=== PATIENT | female | born 1975 | race Caucasian/White ===

== ENCOUNTER 2021-08-25 10:45 | Observation (INO) | payer BC, SELFPAY ==
[~2021-08-25] VITALS: Ht 167.6 cm; Wt 92.1 kg
[2021-08-25 12:02] LABS: BASOPHILS % (AUTO) 0.3 % (0-1); EOSINOPHILS # (AUTO) 0.1 X10'3 (0-0.9); EOSINOPHILS % (AUTO) 0.9 % (0-6); HEMATOCRIT 41.6 % (35.0-45.0); HEMOGLOBIN 14.3 g/dl (12.0-16.0); LYMPHOCYTES # (AUTO) 0.6 X10'3 (1.1-4.8); LYMPHOCYTES % (AUTO) 9.9 % (21-51); MEAN CORPUSCULAR HEMOGLOBIN 30.4 PG (27.0-31.0); MEAN CORPUSCULAR HGB CONC 34.4 g/dL (33.0-36.5); MEAN CORPUSCULAR VOLUME 88.2 FL (78-98); MEAN PLATELET VOLUME 8.2 FL (7.4-10.4); MONOCYTES # (AUTO) 0.4 X10'3 (0-0.9); MONOCYTES % (AUTO) 6.3 % (2-12); NEUTROPHILS % (AUTO) 82.6 % (42-75); PLATELET COUNT 156 X10'3 (140-440); RED BLOOD COUNT 4.71 X10'6 (4.20-5.60); RED CELL DISTRIBUTION WIDTH 13.7 % (11.5-14.5); WHITE BLOOD COUNT 6.1 X10'3 (4.5-11.0)
[2021-08-25 12:19] LABS: ALANINE AMINOTRANSFERASE 30 U/L (12-78); ALBUMIN 3.8 G/DL (3.4-5.0); ALBUMIN/GLOBULIN RATIO 1.2 (1.1-1.5); ALKALINE PHOSPHATASE 46 IU/L (46-116); ANION GAP 8 (8-16); ASPARTATE AMINO TRANSFERASE 18 U/L (10-37); BILIRUBIN,TOTAL 0.8 MG/DL (0.1-1.0); BLOOD UREA NITROGEN 14 MG/DL (7-18); BUN/CREATININE RATIO 25.5 (6.6-38.0); CALCIUM 8.3 MG/DL (8.5-10.1); CHLORIDE 106 MMOL/L (99-107); CREATININE 0.55 MG/DL (0.40-0.90); GLUCOSE 87 MG/DL (70-104); POTASSIUM 4.1 MMOL/L (3.5-5.1); SODIUM 139 MMOL/L (135-145); TOTAL CARBON DIOXIDE 24.7 MMOL/L (24-32); eGFR > 90 ML/MIN
[2021-08-25 12:25] LABS: APTT 30 SECONDS (22-32)
--- NOTE | 2021-08-25 14:06 | NUR ---
Tele Neuro Visit in progress.
[2021-08-25] MEDS ORDERED: iohexol 350MG/ML 100ml bottle IV ONE (15:22)
[2021-08-25] MEDS ORDERED: acetaminophen 325mg tablet PO PRN (15:40)
[2021-08-25] MEDS ORDERED: PERFLUTREN PROTEIN-A MICROSPHR (Optison) 0.22 MG/ML 3ML VIAL IV ONE (15:40)
[2021-08-25] MEDS ORDERED: magnesium Cl slow-release 64mg tablet PO PRN ×2 (15:40)
[2021-08-25] MEDS ORDERED: ondansetron/PF 4mg/2ml inj IV PRN (15:40)
[2021-08-25] MEDS ORDERED: magnesium 2GM in 50ml NS 50 ML IV PRN (15:40)
[2021-08-25] MEDS ORDERED: potassium CL 10mEq/100ml bag 100 ML IV PRN (15:40)
[2021-08-25] MEDS ORDERED: potassium Cl 20 mEq SR tablet PO PRN ×2 (15:40)
[2021-08-25] MEDS ORDERED: magnesium 4gm in 100ml NS 100 ML IV PRN (15:40)
[2021-08-25] MEDS ORDERED: ZOLP5TAB8 PO (15:54)
[2021-08-25] MEDS ORDERED: BACL10TA2 PO (15:54)
[2021-08-25 16:28] LABS: MAGNESIUM 1.9 MG/DL (1.5-2.4)
[2021-08-25] MEDS: K and/or MAG REPLACEMENT MC SCH (20:00)
[2021-08-25 22:00] VITALS: BP 129/86
[2021-08-25] MEDS: normal saline 1000ml 1,000 ML IV SCH (22:00)
[2021-08-26] VITALS (7 sets, daily range): BP systolic 98–138; BP diastolic 46–76
--- NOTE | 2021-08-26 03:49 | NUR ---
Pt is a 46 yo female admitted 08/25/2021, day 0 of admission, full code, allergies to Acetaminophen and hydrocodone. no isolation, no restraints. Pt presented c/o and tingling in right cheek, tongue, hand and arm. Symptoms subsided prior to coming to ER. Pt admitted to PCU ROOM 3026 B. Currently, pt is AAO times 4, moves all extremities, follows all commands, steady gait. good strength, pupils 3 equal and reactive, no visual disturbances noted. CT head NEG. Telemetry box #30, SR, HR 76, good pulses, BP 109/88, +1 BLLE edema. ECHO % EF, CXR: No acute cardio pulmonary disease. IVF NSS 125/hr via #20 RAC. CTA no large vessel stenosis or occlusion. RR 16, PO 100% RA, clear, equal, symmetrical, non labored. Hypoactive bowel sounds, soft, non tender. Voids CYU via BRP. Pt remains safe, continue with neuro checks Q4 hours.
[2021-08-26 07:04] LABS: BASOPHILS % (AUTO) 0.4 % (0-1); EOSINOPHILS # (AUTO) 0.2 X10'3 (0-0.9); EOSINOPHILS % (AUTO) 4.4 % (0-6); HEMATOCRIT 39.3 % (35.0-45.0); HEMOGLOBIN 13.4 g/dl (12.0-16.0); LYMPHOCYTES # (AUTO) 0.9 X10'3 (1.1-4.8); LYMPHOCYTES % (AUTO) 23.5 % (21-51); MEAN CORPUSCULAR HEMOGLOBIN 30.2 PG (27.0-31.0); MEAN CORPUSCULAR VOLUME 88.9 FL (78-98); MEAN PLATELET VOLUME 8.1 FL (7.4-10.4); MONOCYTES # (AUTO) 0.4 X10'3 (0-0.9); MONOCYTES % (AUTO) 11.5 % (2-12); NEUTROPHILS # (AUTO) 2.3 X10'3 (1.8-7.7); NEUTROPHILS % (AUTO) 60.2 % (42-75); PLATELET COUNT 127 X10'3 (140-440); RED BLOOD COUNT 4.42 X10'6 (4.20-5.60); RED CELL DISTRIBUTION WIDTH 13.6 % (11.5-14.5); WHITE BLOOD COUNT 3.9 X10'3 (4.5-11.0)
--- NOTE | 2021-08-26 07:11 | NUR ---
Patient in room PCU 3026. I have received report from LEOBARDO LORA and had the opportunity to ask questions and assume patient care.
[2021-08-26 07:20] LABS: ALBUMIN 3.2 G/DL (3.4-5.0); ANION GAP 7 (8-16); BLOOD UREA NITROGEN 10 MG/DL (7-18); BUN/CREATININE RATIO 16.9 (6.6-38.0); CALCIUM 7.8 MG/DL (8.5-10.1); CHLORIDE 109 MMOL/L (99-107); CREATININE 0.59 MG/DL (0.40-0.90); GLUCOSE 63 MG/DL (70-104); MAGNESIUM 1.8 MG/DL (1.5-2.4); POTASSIUM 3.8 MMOL/L (3.5-5.1); SODIUM 139 MMOL/L (135-145); TOTAL CARBON DIOXIDE 23.1 MMOL/L (24-32); eGFR > 90 ML/MIN
[2021-08-26] MEDS: K and/or MAG REPLACEMENT MC SCH ×2 (08:00→19:02)
--- NOTE | 2021-08-26 09:17 | NUR ---
PAGER ID: [phone] MESSAGE: KIMMIE GILMORE ROOM 3026 Pt would like some medication for back spasm/pain for her scheduled MRI please. Thank you. Odilia [phone]
[2021-08-26] MEDS ORDERED: baclofen 10mg tablet PO ONE (09:45)
[2021-08-26] MEDS ORDERED: aspirin 81mg, enteric-coated 1 TAB TABLET.DR PO ONE (15:20)
[2021-08-26 15:24] LABS: CHOL/HDL RATIO 2.9 (0.00-4.99); CHOLESTEROL 170 MG/DL (0-200); HDL CHOLESTEROL 59 MG/DL (35-60); LDL CHOLESTEROL 96 MG/DL (50-100); TRIGLYCERIDES 86 MG/DL (20-135)
[2021-08-26] MEDS: normal saline 1000ml 1,000 ML IV SCH ×2 (17:35→19:00)
--- NOTE | 2021-08-26 19:27 | NUR ---
Problems reprioritized. Patient report given, questions answered & plan of care reviewed with LEOBARDO Killian.
[2021-08-26] MEDS ORDERED: famotidine 20mg tablet PO ONE (22:00)
--- NOTE | 2021-08-27 01:25 | NUR ---
Pt is a 46 yo female admitted 08/25/2021, day 1 of admission, full code, allergies to Acetaminophen and hydrocodone. no isolation, no restraints. Pt presented c/o and tingling in right cheek, tongue, hand and arm. Symptoms subsided prior to coming to ER. Pt admitted to PCU ROOM 3026 B. Currently, pt is AAO times 4, moves all extremities, follows all commands, steady gait. good strength, pupils 3 equal and reactive, no visual disturbances noted. CT head NEG. Telemetry discontinued, SR, HR 68, good pulses, BP 109/70, trace BLLE edema. ECHO EF 60%, CXR: No acute cardio pulmonary disease. IVF NSS 125/hr via #20 RAC. CTA no large vessel stenosis or occlusion. RR 16, PO 100% RA, clear, equal, symmetrical, non labored. Hypoactive bowel sounds, soft, non tender. Voids CYU via BRP. Pt remains safe, continue with neuro checks Q4 hours.
[2021-08-27 02:00] VITALS: BP 96/50
[2021-08-27 06:00] VITALS: BP 91/57
--- NOTE | 2021-08-27 06:10 | NUR ---
received report from chitra black
[2021-08-27 06:49] LABS: BASOPHILS % (AUTO) 0.5 % (0-1); EOSINOPHILS # (AUTO) 0.2 X10'3 (0-0.9); HEMOGLOBIN 13.4 g/dl (12.0-16.0); LYMPHOCYTES # (AUTO) 1.3 X10'3 (1.1-4.8); LYMPHOCYTES % (AUTO) 31.3 % (21-51); MEAN CORPUSCULAR HEMOGLOBIN 30.4 PG (27.0-31.0); MEAN CORPUSCULAR HGB CONC 34.3 g/dL (33.0-36.5); MEAN CORPUSCULAR VOLUME 88.7 FL (78-98); MONOCYTES # (AUTO) 0.5 X10'3 (0-0.9); MONOCYTES % (AUTO) 13.2 % (2-12); PLATELET COUNT 142 X10'3 (140-440); RED BLOOD COUNT 4.39 X10'6 (4.20-5.60); RED CELL DISTRIBUTION WIDTH 13.9 % (11.5-14.5); WHITE BLOOD COUNT 4.1 X10'3 (4.5-11.0)
[2021-08-27 06:57] LABS: ALBUMIN 3.1 G/DL (3.4-5.0); ANION GAP 6 (8-16); BLOOD UREA NITROGEN 9 MG/DL (7-18); BUN/CREATININE RATIO 19.1 (6.6-38.0); CALCIUM 7.8 MG/DL (8.5-10.1); CHLORIDE 110 MMOL/L (99-107); CREATININE 0.47 MG/DL (0.40-0.90); GLUCOSE 94 MG/DL (70-104); MAGNESIUM 1.9 MG/DL (1.5-2.4); SODIUM 143 MMOL/L (135-145); TOTAL CARBON DIOXIDE 27.1 MMOL/L (24-32); eGFR > 90 ML/MIN
[2021-08-27] MEDS: K and/or MAG REPLACEMENT MC SCH (07:16)
[2021-08-27] MEDS ORDERED: aspirin 81mg, enteric-coated 1 TAB TABLET.DR PO SCH (08:00)
[2021-08-27] MEDS ORDERED: ASPI-1071 PO (08:51)
[2021-08-27] MEDS: normal saline 1000ml 1,000 ML IV SCH (09:37)
[2021-08-27] MEDS ORDERED: ATOR20TA66 PO (10:48)
--- NOTE | 2021-08-27 10:59 | NUR ---
sent a page to because, said to pt that she was going to order a statin to pt pharmacy prior to d/c, sent page, waiting to hear back from
--- NOTE | 2021-08-27 11:03 | NUR ---
pt d/c with instructions, understanding of instructions and w/all belongings walking out accompanied by nursing staff to private vehicle to go home and f/u w/pcp
== END 2021-08-27 10:55 | disposition home or self-care (01) ==
LOC: ER 10:46 → ED HOLD 15:46 → PCU 3S 21:52
PROVIDERS: ADMIT Internal Medicine; ATTEND Internal Medicine
DX: G45.9 Transient cerebral ischemic attack, unspecified (principal); I63.9 Cerebral infarction, unspecified; R20.0 Anesthesia of skin; R20.2 Paresthesia of skin; Z79.82 Long term (current) use of aspirin; Z90.710 Acquired absence of both cervix and uterus; Z79.899 Other long term (current) drug therapy
CPT/HCPCS: 36415; 70450; 70496; 70498; 70551; 71045; 80048; 80053; 80061; 83036; 83735; 84443; 84484; 85025; 85610; 85730; 93005; 93306; 96360; 96361; 99285; G0378; J7030; Q9967

== ENCOUNTER 2021-12-22 11:38 | Emergency (ER) | payer BC, SELFPAY ==
[~2021-12-22] VITALS: Ht 167.6 cm; Wt 94.5 kg
[~2021-12-22 11:38] MED LIST: ASPI-1071 PO; ATOR20TA66 PO; BACL10TA2 PO; ZOLP5TAB8 PO
[2021-12-22 12:08] VITALS: BP 121/71
[2021-12-22 12:32] LABS: BASOPHILS % (AUTO) 0.4 % (0-1); EOSINOPHILS # (AUTO) 0.1 X10'3 (0-0.9); EOSINOPHILS % (AUTO) 2.4 % (0-6); HEMATOCRIT 39.6 % (35.0-45.0); HEMOGLOBIN 13.4 g/dl (12.0-16.0); LYMPHOCYTES # (AUTO) 1.3 X10'3 (1.1-4.8); LYMPHOCYTES % (AUTO) 23.6 % (21-51); MEAN CORPUSCULAR HGB CONC 33.8 g/dL (33.0-36.5); MEAN CORPUSCULAR VOLUME 88.7 FL (78-98); MEAN PLATELET VOLUME 7.7 FL (7.4-10.4); MONOCYTES # (AUTO) 0.4 X10'3 (0-0.9); MONOCYTES % (AUTO) 6.5 % (2-12); NEUTROPHILS # (AUTO) 3.6 X10'3 (1.8-7.7); NEUTROPHILS % (AUTO) 67.1 % (42-75); PLATELET COUNT 209 X10'3 (140-440); RED BLOOD COUNT 4.47 X10'6 (4.20-5.60); RED CELL DISTRIBUTION WIDTH 13.6 % (11.5-14.5); WHITE BLOOD COUNT 5.4 X10'3 (4.5-11.0)
[2021-12-22 12:48] LABS: ALANINE AMINOTRANSFERASE 22 U/L (12-78); ALBUMIN 3.7 G/DL (3.4-5.0); ALBUMIN/GLOBULIN RATIO 1.2 (1.1-1.5); ALKALINE PHOSPHATASE 45 IU/L (46-116); ANION GAP 6 (8-16); ASPARTATE AMINO TRANSFERASE 16 U/L (10-37); BILIRUBIN,TOTAL 0.3 MG/DL (0.1-1.0); BLOOD UREA NITROGEN 11 MG/DL (7-18); BUN/CREATININE RATIO 14.7 (6.6-38.0); CALCIUM 8.4 MG/DL (8.5-10.1); CHLORIDE 107 MMOL/L (99-107); CREATININE 0.75 MG/DL (0.40-0.90); GLUCOSE 94 MG/DL (70-104); POTASSIUM 3.8 MMOL/L (3.5-5.1); SODIUM 142 MMOL/L (135-145); TOTAL CARBON DIOXIDE 29.3 MMOL/L (24-32); TOTAL PROTEIN 6.7 G/DL (6.4-8.2); eGFR 84 ML/MIN
== END 2021-12-22 15:31 | disposition home or self-care (01) ==
LOC: ER 11:39
DX: R00.2 Palpitations (principal); Z88.5 Allergy status to narcotic agent; Z88.6 Allergy status to analgesic agent
CPT/HCPCS: 36415; 71045; 80053; 83880; 84484; 85025; 93005; 99285